=== PATIENT | male | born 1970 | race American Indian/Alaskan Native ===

== ENCOUNTER 2016-07-31 14:03 | Emergency (ER) | payer SELFPAY ==
--- NOTE | 2016-07-31 15:29 | Emergency Department Report ---
HPI - General Chief Complaint: Back Pain/Injury Time Seen by Provider: 07/31/16 15:11 - HPI HPI: Patient is a 45-year-old male with no history of any medical conditions who presents to ED complaining of left lower back pain radiating down his left leg. Patient states this has been going on for about a month over a month. Patient states he started progressively worse over the past couple of weeks. Patient states pain was bad this morning that he was unable to make it to work. Patient denies any trauma or recent injury. Patient denies fevers/chills/nausea/vomiting/abdominal pain/chest pain/ ED Past Medical Hx - Past Medical History Previous Medical History?: Yes Additional medical history: Back pain - Surgical History Past Surgical History?: Yes Additional Surgical History: Right shoulder surgery - Social History Smoking Status: Never Smoker Substance Use Type: Alcohol, Non Opiate Pain, Prescribed - Medications Home Medications: Home Medications Medication Instructions Recorded Confirmed Last Taken Type Ibuprofen [Motrin] 800 mg PO Q8HR PRN #24 tablet 07/31/16 Unknown Rx traMADol [Ultram 50 MG tab] 50 mg PO Q6HR PRN #20 tablet 07/31/16 Unknown Rx ED Review of Systems ROS: Stated complaint: BACK/LEG PAIN Other details as noted in HPI Constitutional: denies: chills, fever Eyes: denies: eye pain, eye discharge, vision change ENT: denies: ear pain, throat pain, dental pain, epistaxis, congestion Respiratory: denies: cough, shortness of breath, wheezing Cardiovascular: denies: chest pain, palpitations Endocrine: no symptoms reported Gastrointestinal: denies: abdominal pain, nausea, vomiting, diarrhea, constipation Genitourinary: denies: urgency, dysuria, frequency, hematuria, discharge, testicular pain, testicular mass Musculoskeletal: denies: back pain, joint swelling, arthralgia, myalgia Skin: denies: rash, lesions, pruritus Neurological: denies: headache, weakness, numbness, paresthesias, confusion Psychiatric: denies: anxiety, depression, auditory hallucinations, homicidal thoughts, suicidal thoughts Hematological/Lymphatic: denies: easy bleeding, easy bruising, swollen glands Physical Exam - Physical Exam Vital Signs: Vital Signs 07/31/16 14:07 Temperature 98.2 F Pulse Rate 94 H Respiratory 18 Rate Blood Pressure 146/111 O2 Sat by Pulse 97 Oximetry Physical Exam: GENERAL: Alert and oriented x3, no apparent distress, Normal Gait, atraumatic. HEAD: Head is normocephalic and a-traumatic. LUNGS: Symetrical with respiration, No wheezing, no rales or crackles, CTAB. HEART: S1, S2 present, regular rate and rhythm without murmur, no rubs, no gallops. ABDOMEN: No organomegaly was noted,Positive bowel sounds, soft, and non- distended. . Nontender to palpation on all Quadrants, NO CVA tenderness. EXTREMITIES/MUSCULOSKELETAL: No cyanosis, clubbing, rash, lesions or edema. Full ROM bilaterally. UE Pulses 2+ bilaterally. LE and UE 5+ strength bilaterally. No calf tenderness bilaterally. Homans sign negative bilaterally. Straight leg raise negative bilaterally. Tenderness to palpation of the left and the anterior thigh muscles. Pain at quadrants with straight leg raise NEUROLOGIC: No focal Deficit, Cranial nerves II through XII are grossly intact. No loss of sensation, PSYCHIATRIC: Mood is congruent with affect, denies suicidal or homicidal ideations. SKIN: Warm and dry, No lesions, No ulceration or induration present. ED Course Vital Signs 07/31/16 14:07 Temperature 98.2 F Pulse Rate 94 H Respiratory 18 Rate Blood Pressure 146/111 O2 Sat by Pulse 97 Oximetry ED Medical Decision Making - Medical Decision Making 45-year-old male presents with lumbar radiculopathy ED course: Discussed the patient to follow-up with primary care physician Patient's vital signs stable patient is in no acute respiratory distress. Patient agrees to follow-up with the primary care physician as referred. Patient agrees to take medication as prescribed and follow up with his primary care physician. Critical care attestation.: If time is entered above; I have spent that time in minutes in the direct care of this critically ill patient, excluding procedure time. ED Disposition Clinical Impression: Lumbar radiculopathy Disposition: DISCHARGED TO HOME OR SELFCARE Is pt being admited?: No Does the pt Need Aspirin: No Condition: Stable Instructions: Lumbar Radiculopathy (ED), Chronic Back Pain (ED) Prescriptions: Ibuprofen [Motrin] 800 mg PO Q8HR PRN #24 tablet PRN Reason: Pain traMADol [Ultram 50 MG tab] 50 mg PO Q6HR PRN #20 tablet PRN Reason: Pain Referrals: PRIMARY CARE, [Primary Care Provider] - 3-5 Days ANNABEL COLEY MD [Referring] - 3-5 Days MOIRA ALEJANDRO MD [Referring] - 3-5 Days TRINO CHAN MD [Referring] - 3-5 Days [facility] [Outside] - 3-5 Days [facility] [Outside] - 3-5 Days Forms: Work/School Release Form Time of Disposition: 15:43
[2016-07-31 16:06] VITALS: BP 140/96
== END 2016-07-31 16:04 | disposition home or self-care (01) ==
LOC: ED 14:03
DX: M54.16 Radiculopathy, lumbar region (principal)
CPT/HCPCS: 99282

== ENCOUNTER 2018-07-22 09:24 | Day surgery (SDC) | payer OTHER ==
[2018-07-22] MEDS ORDERED: WATER FOR IRRIG STERILE IR ONE (09:53)
[2018-07-22] MEDS ORDERED: WATER FOR IRRIG STERILE ONE (09:54)
[2018-07-22] MEDS ORDERED: NACL 0.9% 1000 ML 1,000 ML IV SCH (11:00)
[2018-07-22] MEDS ORDERED: DIPRIVAN 10 MG/ML IV ONE ×2 (11:07)
--- NOTE | 2018-07-22 11:50 | Procedure Note ---
Date of procedure: 07/22/18 Pre-op diagnosis: Colon Polyp Screening/ F/H/O Cancer Post-op diagnosis: other (No Colon Polyp Screening/ Minor,Diverticuli Noted) Procedure: Colonoscopy Anesthesia: MAC Surgeon: MAGNUS MORRELL Estimated blood loss: none Pathology: none Condition: stable Disposition: same day (Encourage fiber supplement. Follow up in 1 to 2 weeks ([phone]).)
--- NOTE | 2018-07-22 11:50 | Operative Report ---
PROCEDURE: Screening colonoscopy. INDICATIONS: This is a 47-year-old -[place] male with an underlying history of hypertension and a strong family history of cancer. The patient's sister had uterine cancer when she was 44, and aunt had throat cancer, possible esophageal cancer. Colonoscopy was done as part of colon polyp screening procedure, was done after getting informed consent. with MAC anesthesia. DESCRIPTION OF PROCEDURE: Initial rectal exam was unremarkable. Instrument was passed through the rectum onto the cecum, which was identified with ileocecal valve and appendiceal orifice. Visualization was fair. The scope was retroflexed in the cecum, there were no polyps noted. The colonoscope was reintroduced into the cecum from after withdrawal into the hepatic flexure area. Again, no polyps were noted in the cecum, ascending colon, and transverse colon. There were a few minor diverticula noted in the left colon and the rectum appeared normal in the retroverted view. There was no bleeding associated with the procedure. No complications associated with the procedure. ASSESSMENT: Colon polyp screening, family history of cancer. No colon polyps noted. Minor internal hemorrhoid. Again, there was no bleeding or complications associated with the procedure. The patient will be encouraged to take fiber supplements. Follow up in the office in 1-2 weeks' time. RN, Kristen Garcia was in the room throughout the entirety of the procedure. JOB# [id number] CODY/VERONICA
[2018-07-22 11:53] VITALS: BP 128/96
--- NOTE | 2018-07-22 13:30 | Anesthesia Consultation ---
Anesthesia Consult and Med Hx Date of service: 07/22/18 - Airway Anesthetic Teeth Evaluation: Good ROM Head & Neck: Adequate Mental/Hyoid Distance: Adequate Mallampati Class: Class II Intubation Access Assessment: Probably Good - Pulmonary Exam CTA: Yes - Cardiac Exam Cardiac Exam: RRR - Pre-Operative Health Status ASA Pre-Surgery Classification: ASA2 Proposed Anesthetic Plan: MAC - Pulmonary Hx Smoking: No Hx Respiratory Symptoms: No - Cardiovascular System Hx Hypertension: Yes (took lisinopril) Hx Heart Attack/AMI: No Hx Cardia Arrhythmia: Yes (palpitation; cardiology visit pending; no HF signs or symptoms) - Central Nervous System CVA: No - Endocrine Hx Renal Disease: No Hx Insulin Dependent Diabetes: No - Other Systems Hx Obesity: Yes - Additional Comments Anesthesia Medical History Comments: No hx anesthetic complications.
--- NOTE | 2018-07-22 13:30 | Anesthesia Day of Surgery ---
Anesthesia Day of Surgery - Day of Surgery Patient Examined: Yes Patient H&P Reviewed: Yes Patient is NPO: Yes
== END 2018-07-22 09:25 | disposition home or self-care (01) ==
LOC: GIO 09:24
DX: Z12.11 Encounter for screening for malignant neoplasm of colon (principal); K57.30 Diverticulosis of large intestine without perforation or abscess without bleeding; K64.8 Other hemorrhoids; E78.00 Pure hypercholesterolemia, unspecified; I10 Essential (primary) hypertension; E66.9 Obesity, unspecified; Z68.33 Body mass index [BMI] 33.0-33.9, adult; Z80.8 Family history of malignant neoplasm of other organs or systems; Z80.59 Family history of malignant neoplasm of other urinary tract organ; Z79.899 Other long term (current) drug therapy; Z98.890 Other specified postprocedural states
CPT/HCPCS: 45378; J2704; J7030